=== PATIENT | female | born 1990 | race Caucasian/White ===

== ENCOUNTER 2017-09-25 11:23 | Emergency (ER) | payer OTHER, BC ==
[2017-09-25] MEDS ORDERED: Ketorolac 30 MG/ML SDV IVPUSH ONE (11:36)
[2017-09-25] MEDS ORDERED: Sodium Chloride 0.9% 1,000 ML IV ONE (11:36)
[2017-09-25] MEDS ORDERED: Ondansetron 4 MG/2 ML SDV IVPUSH ONE (11:36)
--- NOTE | 2017-09-25 11:38 | EDM.PDOC ---
ED HPI GENERAL MEDICAL PROBLEM - General Chief Complaint: Abdominal Pain Stated Complaint: ABD PAIN Time Seen by Provider: 09/25/17 11:24 Source of Information: Reports: Patient History Limitations: Reports: No Limitations - History of Present Illness INITIAL COMMENTS - FREE TEXT/NARRATIVE: HISTORY AND PHYSICAL: History of present illness: Patient is a 27-year-old female who presents to the emergency room today with complaints of right lower quadrant pain that radiates to the mid pelvis. She states that the pain was worse on Friday and since that time has been intermittent. She denies any fever, chills, chest pain, shortness of breath or cough. Some mild nausea without vomiting. No change in bowel pattern. Denies any dysuria. Last menstrual period was September 02, 2017. Denies any vaginal bleeding or discharge. Review of systems: As per history of present illness and below otherwise all systems reviewed and negative. Past medical history: As per history of present illness and as reviewed below otherwise noncontributory. Surgical history: As per history of present illness and as reviewed below otherwise noncontributory. Social history: No reported history of drug or alcohol abuse. Family history: As per history of present illness and as reviewed below otherwise noncontributory. Physical exam: General: Well-developed and well-nourished 27-year-old female. Alert and oriented. Nontoxic appearing and in no acute distress. HEENT: Atraumatic, normocephalic, pupils equal and reactive bilaterally, negative for conjunctival pallor or scleral icterus, mucous membranes moist, throat clear, neck supple, nontender, trachea midline. No drooling or trismus noted. No meningeal signs Lungs: Clear to auscultation, breath sounds equal bilaterally, chest nontender. Heart: S1S2, regular rate and rhythm without overt murmur Abdomen: Soft, nondistended, nontender. Negative for masses or hepatosplenomegaly. Negative for costovertebral tenderness. Pelvis: Stable nontender. Genitourinary: Deferred. Rectal: Deferred. Skin: Intact, warm, dry. No lesions or rashes noted. Extremities: Atraumatic, negative for cords or calf pain. Neurovascular unremarkable. Neuro: Awake, alert, oriented. Cranial nerves II through XII unremarkable. Cerebellum unremarkable. Motor and sensory unremarkable throughout. Exam nonfocal. Notes: CBC, CMP, UA are unremarkable. Negative . CT of the abdomen/pelvis results are pending. CT of the abdomen shows a 2.5 cm right ovarian cyst. Although they are unable able to identify the appendix definitively she is not having any right lower quadrant tenderness or rebound tenderness with palpation. I did discuss these results with her. We'll prescribe Cataflam 50 mg 3 times a day and close follow- up with her DREDGE LEVER OPERATOR/primary care provider. If her abdominal pain should return or worsen she needs to return to the emergency room. She voices understanding and is agreeable to plan of care. She denies any further questions at this time. Diagnostics: CBC, CMP, UA, urine , CT abdomen and pelvis Therapeutics: IV fluid, Zofran, Toradol Impression: Abdominal pain Ovarian cyst, right Plan: 1. Please take the Cataflam as directed. Please take with food. May use Tylenol for breakthrough pain. 2. Follow-up with your primary caregiver/DREDGE LEVER OPERATOR in the next 1-2 days. Return to the ED as needed and as discussed. Definitive disposition and diagnosis as appropriate pending reevaluation and review of above. Right Lower Abdomen Pain Score (Numeric/FACES): 1 - Related Data Allergies Allergy/AdvReac Type Severity Reaction Status Date / Time Penicillins Allergy Cannot Verified 09/25/17 11:39 Remember Home Meds: Home Meds Iron 18 mg PO DAILY 06/04/16 [History] Past Medical History - Past Health History Medical/Surgical History: Denies Medical/Surgical History Hematologic History: Reports: Anemia - Infectious Disease History Infectious Disease History: Reports: Chicken Pox Social & Family History - Family History Family Medical History: Noncontributory - Caffeine Use Caffeine Use: Reports: None ED ROS GENERAL - Review of Systems Review Of Systems: ROS reveals no pertinent complaints other than HPI. ED EXAM, GI/ABD - Physical Exam Exam: See Below (See dictation) Course - Vital Signs Last Recorded V/S: Last Vital Signs Temp 98.7 F 09/25/17 14:15 Pulse 83 09/25/17 14:15 Resp 14 09/25/17 14:15 BP 99/59 L 09/25/17 14:15 Pulse Ox 98 09/25/17 14:15 - Orders/Labs/Meds Orders: Active Orders 24 hr Category Date Time Status HCG QUALITATIVE,URINE [URCHEM] Stat Lab 09/25/17 11:55 Ordered UA W/MICROSCOPIC [URIN] Stat Lab 09/25/17 11:55 Ordered Labs: Laboratory Tests 09/25/17 09/25/17 09/25/17 Range/Units 11:55 11:55 11:58 WBC 6.88 (4.0-11.0) K/uL RBC 4.71 (4.30-5.90) M/uL Hgb 14.2 (12.0-16.0) g/dL Hct 41.8 (36.0-46.0) % MCV 88.7 (80.0-98.0) fL MCH 30.1 (27.0-32.0) pg MCHC 34.0 (31.0-37.0) g/dL RDW Std Deviation 37.6 (28.0-62.0) fl RDW Coeff of Lizett 12 (11.0-15.0) % Plt Count 196 (150-400) K/uL MPV 8.60 (7.40-12.00) fL Neut % (Auto) 70.9 (48.0-80.0) % Lymph % (Auto) 15.7 L (16.0-40.0) % [place] % (Auto) 12.9 (0.0-15.0) % Eos % (Auto) 0.4 (0.0-7.0) % Baso % (Auto) 0.1 (0.0-1.5) % Neut # (Auto) 4.9 (1.4-5.7) K/uL Lymph # (Auto) 1.1 (0.6-2.4) K/uL [place] # (Auto) 0.9 H (0.0-0.8) K/uL Eos # (Auto) 0.0 (0.0-0.7) K/uL Baso # (Auto) 0.0 (0.0-0.1) K/uL Nucleated RBC % 0.0 /100WBC Nucleated RBCs # 0 K/uL Sodium (136-145) mmol/L Potassium (3.5-5.1) mmol/L Chloride (98-107) mmol/L Carbon Dioxide (21.0-32.0) mmol/L BUN (7.0-18.0) mg/dL Creatinine (0.6-1.0) mg/dL Est Cr Clr Drug Dosing mL/min Estimated GFR (MDRD) ml/min Glucose (74-106) mg/dL Calcium (8.5-10.1) mg/dL Total Bilirubin (0.2-1.0) mg/dL AST (15-37) IU/L ALT (14-63) IU/L Alkaline Phosphatase (46-116) U/L Total Protein (6.4-8.2) g/dL Albumin (3.4-5.0) g/dL Globulin (2.0-3.5) g/dL Albumin/Globulin Ratio (1.3-2.8) Urine Color YELLOW Urine Appearance CLEAR Urine pH 5.5 (5.0-8.0) Ur Specific [place] 1.010 (1.001-1.035) Urine Protein NEGATIVE (NEGATIVE) mg/dL Urine Glucose (UA) NEGATIVE (NEGATIVE) mg/dL Urine Ketones NEGATIVE (NEGATIVE) mg/dL Urine Occult Blood TRACE-INTACT (NEGATIVE) Urine Nitrite NEGATIVE (NEGATIVE) Urine Bilirubin NEGATIVE (NEGATIVE) Urine Urobilinogen 0.2 (<2.0) EU/dL Ur Leukocyte Esterase NEGATIVE (NEGATIVE) Urine RBC 0-1 (0-2/HPF) Urine WBC 0-1 (0-5/HPF) Ur Epithelial Cells OCCASIONAL (NONE-FEW) Urine Bacteria RARE (NEGATIVE) Urine Mucus LIGHT (NONE-MOD) Urine HCG, Qual NEGATIVE (NEGATIVE) 09/25/17 Range/Units 11:58 WBC (4.0-11.0) K/uL RBC (4.30-5.90) M/uL Hgb (12.0-16.0) g/dL Hct (36.0-46.0) % MCV (80.0-98.0) fL MCH (27.0-32.0) pg MCHC (31.0-37.0) g/dL RDW Std Deviation (28.0-62.0) fl RDW Coeff of Lizett (11.0-15.0) % Plt Count (150-400) K/uL MPV (7.40-12.00) fL Neut % (Auto) (48.0-80.0) % Lymph % (Auto) (16.0-40.0) % [place] % (Auto) (0.0-15.0) % Eos % (Auto) (0.0-7.0) % Baso % (Auto) (0.0-1.5) % Neut # (Auto) (1.4-5.7) K/uL Lymph # (Auto) (0.6-2.4) K/uL [place] # (Auto) (0.0-0.8) K/uL Eos # (Auto) (0.0-0.7) K/uL Baso # (Auto) (0.0-0.1) K/uL Nucleated RBC % /100WBC Nucleated RBCs # K/uL Sodium 135 L (136-145) mmol/L Potassium 3.7 (3.5-5.1) mmol/L Chloride 104 (98-107) mmol/L Carbon Dioxide 26.6 (21.0-32.0) mmol/L BUN 9 (7.0-18.0) mg/dL Creatinine 0.6 (0.6-1.0) mg/dL Est Cr Clr Drug Dosing 138.93 mL/min Estimated GFR (MDRD) > 60.0 ml/min Glucose 98 (74-106) mg/dL Calcium 8.7 (8.5-10.1) mg/dL Total Bilirubin 0.4 (0.2-1.0) mg/dL AST 21 (15-37) IU/L ALT 24 (14-63) IU/L Alkaline Phosphatase 76 (46-116) U/L Total Protein 7.5 (6.4-8.2) g/dL Albumin 4.0 (3.4-5.0) g/dL Globulin 3.5 (2.0-3.5) g/dL Albumin/Globulin Ratio 1.1 L (1.3-2.8) Urine Color Urine Appearance Urine pH (5.0-8.0) Ur Specific [place] (1.001-1.035) Urine Protein (NEGATIVE) mg/dL Urine Glucose (UA) (NEGATIVE) mg/dL Urine Ketones (NEGATIVE) mg/dL Urine Occult Blood (NEGATIVE) Urine Nitrite (NEGATIVE) Urine Bilirubin (NEGATIVE) Urine Urobilinogen (<2.0) EU/dL Ur Leukocyte Esterase (NEGATIVE) Urine RBC (0-2/HPF) Urine WBC (0-5/HPF) Ur Epithelial Cells (NONE-FEW) Urine Bacteria (NEGATIVE) Urine Mucus (NONE-MOD) Urine HCG, Qual (NEGATIVE) Meds: Medications Discontinued Medications Generic Name Dose Route Start Last Admin Trade Name Ermias PRN Reason Stop Dose Admin Sodium Chloride 1,000 mls @ 999 mls/hr 09/25/17 11:36 09/25/17 11:59 Normal Saline IV 09/25/17 12:36 999 mls/hr STAT ONE Administration Iopamidol 77 ml 09/25/17 13:40 09/25/17 13:41 Isovue Multipack-370 (76%) IVPUSH 09/25/17 13:41 77 ml ONETIME STA Administration Ketorolac Tromethamine 30 mg 09/25/17 11:36 09/25/17 12:02 Toradol IVPUSH 09/25/17 11:37 30 mg ONETIME ONE Administration Ondansetron HCl 4 mg 09/25/17 11:36 09/25/17 11:59 Zofran IVPUSH 09/25/17 11:37 4 mg ONETIME ONE Administration Departure - Departure Time of Disposition: 14:20 Disposition: Home, Self-Care 01 Clinical Impression: Ovarian cyst Qualifiers: Laterality: right Qualified Code(s): N83.201 - Unspecified ovarian cyst, right side Abdominal pain Qualifiers: Abdominal location: right lower quadrant Qualified Code(s): R10.31 - Right lower quadrant pain - Discharge Information Instructions: Ovarian Cyst, [id number] Referrals: PCP,None [Primary Care Provider] - Forms: ED Department Discharge Additional Instructions: The following information is given to patients seen in the emergency department who are being discharged to home. This information is to outline your options for follow-up care. We provide all patients seen in our emergency department with a follow-up referral. The need for follow-up, as well as the timing and circumstances, are variable depending upon the specifics of your emergency department visit. If you don't have a primary care physician on staff, we will provide you with a referral. We always advise you to contact your personal physician following an emergency department visit to inform them of the circumstance of the visit and for follow-up with them and/or the need for any referrals to a consulting specialist. The emergency department will also refer you to a specialist when appropriate. This referral assures that you have the opportunity for follow-up care with a specialist. All of these measure are taken in an effort to provide you with optimal care, which includes your follow-up. Under all circumstances we always encourage you to contact your private physician who remains a resource for coordinating your care. When calling for follow-up care, please make the office aware that this follow-up is from your recent emergency room visit. If for any reason you are refused follow-up, please contact the [facility] Emergency Department at and asked to speak to the emergency department charge nurse. [facility] [address] [place] [id number] 1. Please take the Cataflam as directed. Please take with food. May use Tylenol for breakthrough pain. 2. Follow-up with your primary caregiver/DREDGE LEVER OPERATOR in the next 1-2 days. Return to the ED as needed and as discussed. - My Orders Last 24 Hours: My Active Orders 09/25/17 11:55 HCG QUALITATIVE,URINE [URCHEM] Stat UA W/MICROSCOPIC [URIN] Stat - Assessment/Plan Last 24 Hours: My Active Orders 09/25/17 11:55 HCG QUALITATIVE,URINE [URCHEM] Stat UA W/MICROSCOPIC [URIN] Stat
[2017-09-25 12:50] LABS: CHLORIDE,CL 104 mmol/L (98-107); SODIUM,NA 135 mmol/L (136-145)
[2017-09-25] MEDS ORDERED: Iopamidol 755 MG/ML 500 ML Multipack Bottle IVPUSH STA (13:40)
--- NOTE | 2017-09-25 14:04 | CT ---
CT of the abdomen and pelvis with contrast. HISTORY: Pain TECHNIQUE: Axial CT images were obtained of the abdomen and pelvis following administration of 77 mL of Isovue-370 in the right antecubital fossa without complication. Coronal and sagittal reconstructio ns obtained. FINDINGS: The lung bases are clear, no pleural effusion. Mild focal fatty infiltration near the falciform ligament otherwise the liver is unremarkable. Spleen , adrenal glands, and pancreas appear normal. The gallbladder is normal. There is no bulky retroperit morel lymphadenopathy or abdominal ascites. The kidneys enhance and function symmetrically without evidence of obstructive uropathy. Tiny cyst wi thin the lower pole of the right kidney is noted. The large and small bowel are normal in caliber without evidence of obstruction. No focal pericolonic inflammation or stranding. The appendix is definitively identified. There is a 2.5 cm right ovarian cyst. Small amount of free pelvic fluid, likely physiologic. Uterus is otherwise grossly unremarkable . No suspicious osseous abnormalities identified. IMPRESSION: 1. There is a 2.5 cm right ovarian cyst, possibly involuting. 2. The appendix is not definitively identified. 3. Small amount of free pelvic fluid, likely physiologic.
[2017-09-25 14:40] VITALS: BP 97/56
== END 2017-09-25 14:33 | disposition home or self-care (01) ==
LOC: MW.ED 11:23
DX: N83.201 Unspecified ovarian cyst, right side (principal); Z88.0 Allergy status to penicillin
CPT/HCPCS: 74177; 80053; 81001; 81025; 85025; 96361; 96374; 96375; 99284; J1885; J2405; J7040; Q9967

== ENCOUNTER 2018-02-13 15:54 | Emergency (ER) | payer OTHER, BC ==
--- NOTE | 2018-02-13 16:27 | EDM.PDOC ---
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 Mohan here with right lower pelvic pain. She states she was given methotrexate 2 days ago for ectopic . She reports in the last hour she's developed significant pain that she describes as sharp and cramping and rates an 8/10. She states she is nauseous but denies any vaginal bleeding or discharge, dysuria, fevers, chills, vomiting, diarrhea. Review of systems: As per history of present illness and below otherwise all systems reviewed and negative. Past medical history: As per history of present illness and as reviewed below otherwise noncontributory. Surgical history: As per history of present illness and as reviewed below otherwise noncontributory. Social history: No reported history of drug or alcohol abuse. Family history: As per history of present illness and as reviewed below otherwise noncontributory. Physical exam: General: Patient sitting comfortably in no acute distress and nontoxic appearing HEENT: Atraumatic, normocephalic, pupils reactive, negative for conjunctival pallor or scleral icterus, mucous membranes moist, throat clear, neck supple, nontender, trachea midline. No meningeal signs. Lungs: Clear to auscultation, breath sounds equal bilaterally, chest nontender. Heart: S1S2, regular, negative for clicks, rubs, or overt murmur. Abdomen: Soft, nondistended, nontender. Negative for masses or hepatosplenomegaly. Negative for costovertebral tenderness. Pelvis: Stable nontender. Genitourinary: Deferred. Rectal: Deferred. Extremities: Atraumatic, negative for cords or calf pain. Neurovascular unremarkable. Neuro: Awake, alert, oriented. Cranial nerves II through XII unremarkable. Cerebellum unremarkable. Motor and sensory unremarkable throughout. Exam nonfocal. Notes: 1629 - Discussed with Dr. Devi at [facility], she recommends US and hcg quant. If US shows no blood and quant is not higher than patient's last quant (410), she may be discharged with follow up instructions. 1810 - Discussed results with Dr. Tong, small amount of free fluid in pelvis. Dr. Devi discussed admitting to observe vs returning home and follow up if worsening symptoms. Patient has chosen to be discharged home and follow up instructions were given. Diagnostics: CBC, serum quant, pelvic US Therapeutics: 30mg Toradol IM Prescriptions: None Impression: Pelvic pain Plan: 1. Motrin or tylenol as needed 2. Follow up with Material Requirements Planning Manager 3. Return to ED as needed as discussed Definitive disposition and diagnosis as appropriate pending reevaluation and review of above. Right Lower Pelvic Pain Score (Numeric/FACES): 8 - Related Data Allergies Allergy/AdvReac Type Severity Reaction Status Date / Time Penicillins Allergy Cannot Verified 02/13/18 16:20 Remember Home Meds: Home Meds Iron 18 mg PO DAILY 06/04/16 [History] Ascorbic Acid [Vitamin C] 1 tab PO DAILY 02/13/18 [History] Past Medical History - Past Health History Medical/Surgical History: Denies Medical/Surgical History HEENT History: Reports: Impaired Vision Hematologic History: Reports: Anemia - Infectious Disease History Infectious Disease History: Reports: Chicken Pox Social & Family History - Family History Family Medical History: Noncontributory - Tobacco Use Smoking Status *Q: Never Smoker Second Hand Smoke Exposure: No - Caffeine Use Caffeine Use: Reports: None - Recreational Drug Use Recreational Drug Use: No ED ROS GENERAL - Review of Systems Review Of Systems: ROS reveals no pertinent complaints other than HPI. ED EXAM - Physical Exam Exam: See Below (see dictation) Course - Vital Signs Last Recorded V/S: Last Vital Signs Temp 37.3 C 02/13/18 16:17 Pulse 84 02/13/18 16:17 Resp 16 02/13/18 16:17 BP 119/76 02/13/18 16:17 Pulse Ox 100 02/13/18 16:17 - Orders/Labs/Meds Orders: Active Orders 24 hr Category Date Time Status OB Transvaginal [US] Stat Exams 02/13/18 16:29 Taken Labs: Laboratory Tests 02/13/18 02/13/18 Range/Units 17:33 17:33 WBC 8.09 (4.0-11.0) K/uL RBC 4.33 (4.30-5.90) M/uL Hgb 12.9 (12.0-16.0) g/dL Hct 37.6 (36.0-46.0) % MCV 86.8 (80.0-98.0) fL MCH 29.8 (27.0-32.0) pg MCHC 34.3 (31.0-37.0) g/dL RDW Std Deviation 36.5 (28.0-62.0) fl RDW Coeff of Lizett 12 (11.0-15.0) % Plt Count 240 (150-400) K/uL MPV 8.40 (7.40-12.00) fL Neut % (Auto) 81.2 H (48.0-80.0) % Lymph % (Auto) 12.7 L (16.0-40.0) % [place] % (Auto) 5.9 (0.0-15.0) % Eos % (Auto) 0.1 (0.0-7.0) % Baso % (Auto) 0.1 (0.0-1.5) % Neut # (Auto) 6.6 H (1.4-5.7) K/uL Lymph # (Auto) 1.0 (0.6-2.4) K/uL [place] # (Auto) 0.5 (0.0-0.8) K/uL Eos # (Auto) 0.0 (0.0-0.7) K/uL Baso # (Auto) 0.0 (0.0-0.1) K/uL Nucleated RBC % 0.0 /100WBC Nucleated RBCs # 0 K/uL HCG, Quant 352.0 mIU/mL Meds: Medications Discontinued Medications Generic Name Dose Route Start Last Admin Trade Name Freq PRN Reason Stop Dose Admin Ketorolac Tromethamine 30 mg 02/13/18 16:30 02/13/18 17:32 Toradol IM 02/13/18 16:31 30 mg ONETIME ONE Administration Departure - Departure Time of Disposition: 18:20 Disposition: Home, Self-Care 01 Condition: Good Clinical Impression: Pelvic pain, Ectopic - Discharge Information Referrals: PCP,None [Primary Care Provider] - Forms: ED Department Discharge Additional Instructions: The following information is given to patients seen in the emergency department who are being discharged to home. This information is to outline your options for follow-up care. We provide all patients seen in our emergency department with a follow-up referral. The need for follow-up, as well as the timing and circumstances, are variable depending upon the specifics of your emergency department visit. If you don't have a primary care physician on staff, we will provide you with a referral. We always advise you to contact your personal physician following an emergency department visit to inform them of the circumstance of the visit and for follow-up with them and/or the need for any referrals to a consulting specialist. The emergency department will also refer you to a specialist when appropriate. This referral assures that you have the opportunity for follow-up care with a specialist. All of these measure are taken in an effort to provide you with optimal care, which includes your follow-up. Under all circumstances we always encourage you to contact your private physician who remains a resource for coordinating your care. When calling for follow-up care, please make the office aware that this follow-up is from your recent emergency room visit. If for any reason you are refused follow-up, please contact the [facility] Emergency Department at and asked to speak to the emergency department charge nurse. [facility] [address] [place] [id number] 1. Motrin or tylenol as needed 2. Follow up with Material Requirements Planning Manager 3. Return to ED as needed as discussed - My Orders Last 24 Hours: My Active Orders 02/13/18 16:29 OB Transvaginal [US] Stat - Assessment/Plan Last 24 Hours: My Active Orders 02/13/18 16:29 OB Transvaginal [US] Stat
[2018-02-13] MEDS ORDERED: Ketorolac 30 MG/ML SDV IM ONE (16:30)
[2018-02-13 18:48] VITALS: BP 116/65
--- NOTE | 2018-02-16 09:57 | US ---
EXAM DATE: 02/13/18 PATIENT'S AGE: 27 Patient: CRYSTAL OROPEZA Facility: [place], [place] Site . Site : 1990 Study: US OB Pelvis [id number] 5:37:31 PM Ordering Physician: Doctor Kaur Final Report: INDICATION: Right-sided pelvic pain x2 hours. Patient had methotrexate shot 2 days ago for diagnostic topic . TECHNIQUE: Ultrasound OB pelvis transvaginal. Real-time wright-scale imaging of the pelvis was performed. COMPARISON: None FINDINGS: Unremarkable uterus and endometrium. No sign of intrauterine . Complex lesion with peripheral vascular blood flow in the right ovary measures approximately 2 cm. No other suspicious ovarian or adnexal mass. Small amount of complex free fluid is present. IMPRESSION: Complex cystic lesion in or adjacent to the right ovary measuring up to 2 cm is consistent with an ectopic . No fetus visualized and no sign of 5 0 . There is a small amount of complex free fluid in the pelvis. Remainder of the exam is unremarkable. Dictated by Pancho Bey MD @ Feb 13 2018 5:52PM (Electronic Signature) Report Signed by Proxy. [facility]
== END 2018-02-13 18:46 | disposition home or self-care (01) ==
LOC: MW.ED 15:54
DX: O00.90 Unspecified ectopic pregnancy without intrauterine pregnancy (principal); Z79.899 Other long term (current) drug therapy; Z88.0 Allergy status to penicillin
CPT/HCPCS: 36415; 76817; 84702; 85025; 96372; 99284; J1885

== ENCOUNTER 2020-08-23 10:50 | Emergency (ER) | payer OTHER ==
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
[2020-08-23] MEDS ORDERED: Ibuprofen 800 MG Tab PO ONE (12:15)
--- NOTE | 2020-08-23 12:40 | CR ---
INDICATION: Pain, shortness of breath TECHNIQUE: Chest 2 views. COMPARISON: None FINDINGS: Cardiovascular and mediastinum: Heart size and vasculature are normal in caliber and appearance. Mediastinum is within normal limits. Lungs and pleural spaces: Lungs are clear. No sign of infiltrate or mass. No sign of pleural effusion. No pneumothorax. Bones and soft tissues: No significant findings. IMPRESSION: No sign of acute disease. Dictated by Maura Silva MD @ Aug 23 2020 12:39PM Signed by Dr. Maura Silva @ Aug 23 2020 12:39PM
[2020-08-23 12:57] VITALS: BP 100/63; PULSE 94
== END 2020-08-23 12:57 | disposition home or self-care (01) ==
LOC: MW.ED 10:50
DX: R07.9 Chest pain, unspecified (principal); Z88.0 Allergy status to penicillin
CPT/HCPCS: 71046; 81025; 99284; A9270; 99283

== ENCOUNTER 2021-07-30 19:14 | Inpatient (IN) | payer OTHER ==
[2021-07-30] MEDS ORDERED: Lidocaine 1% 50 ML MDV INJECT PRN (20:09)
[2021-07-30] MEDS ORDERED: Carboprost Tromethamine 250 MCG/1 ML Amp IM PRN (20:09)
[2021-07-30] MEDS ORDERED: Ondansetron 4 MG/2 ML SDV IVPUSH PRN (20:09)
[2021-07-30] MEDS ORDERED: Methylergonovine 0.2 MG/1 ML Amp IM PRN (20:09)
[2021-07-30] MEDS ORDERED: Misoprostol 25 MCG (1/4 of 100 MCG) Tab VAG PRN (20:09)
[2021-07-30] MEDS ORDERED: Water For Irrigation,Sterile 1,000 ML Container IRR PRN (20:09)
[2021-07-30] MEDS ORDERED: Terbutaline 1 MG/ML SDV SUBCUT PRN (20:09)
[2021-07-30] MEDS ORDERED: Sodium Chloride 0.9% 20 ML SDV IV PRN (20:09)
[2021-07-30] MEDS ORDERED: Tranexamic Acid 1,000 MG in Sodium Chloride 0.9% 100 ML IV PRN (20:09)
[2021-07-30] MEDS ORDERED: Misoprostol 200 MCG Tab PO PRN (20:09)
[2021-07-30] MEDS ORDERED: Sodium Chloride 0.9% 10 ML Syringe FLUSH PRN (20:09)
[2021-07-30] MEDS ORDERED: Butorphanol 1 MG/ML SDV IVPUSH PRN (20:09)
[2021-07-30] MEDS ORDERED: Sodium Chloride 0.9% 2.5 ML Syringe FLUSH PRN (20:09)
[2021-07-30] MEDS ORDERED: Nalbuphine 20 MG/1 ML Amp IVPUSH PRN (20:13)
[2021-07-30] MEDS ORDERED: Oxytocin/0.9 % Sodium Chloride 30 UNIT/500 ML BAG IV SCH ×2 (20:15)
[2021-07-30] MEDS ORDERED: Misoprostol 25 MCG (1/4 of 100 MCG) Tab ONE (20:16)
[2021-07-30] MEDS: Misoprostol 25 MCG (1/4 of 100 MCG) Tab VAG PRN (20:41)
[2021-07-30] MEDS: Lactated Ringers 1,000 ML IV SCH (20:41)
[2021-07-31] MEDS: Misoprostol 25 MCG (1/4 of 100 MCG) Tab VAG PRN ×2 (01:22→06:42)
[2021-07-31] MEDS: Lactated Ringers 1,000 ML IV SCH ×4 (13:10→19:43)
[2021-07-31] MEDS ORDERED: Ropivacaine 100 ML ONE ×2 (13:34→15:29)
[2021-07-31] MEDS ORDERED: fentaNYL 100 MCG/2 ML SDV ONE ×3 (13:34→15:29)
[2021-07-31] MEDS ORDERED: ePHEDrine 50 MG/ML SDV IVPUSH PRN (14:01)
[2021-07-31] MEDS ORDERED: Bupivacaine 0.5% 10 ML SDV ONE (15:06)
[2021-08-01] MEDS ORDERED: Bisacodyl 10 MG Supp RECTAL PRN (01:03)
[2021-08-01] MEDS ORDERED: oxyCODONE 5 MG Tab PO PRN (01:03)
[2021-08-01] MEDS ORDERED: Benzocaine/Menthol 20%-0.5% Spray 78 GM Cannister TOP PRN (01:03)
[2021-08-01] MEDS ORDERED: Lanolin 100% Cream 7 GM Tube TOP PRN (01:03)
[2021-08-01] MEDS: Lactated Ringers 1,000 ML IV SCH (01:04)
[2021-08-01] MEDS: Ibuprofen 800 MG Tab PO PRN ×3 (02:01→19:41)
[2021-08-01] MEDS: Witch Hazel Medicated Pads 40/Jar TOP PRN (02:03)
[2021-08-01] MEDS: Docusate Sodium 100 MG Cap PO PRN ×2 (07:25→19:41)
[2021-08-01] MEDS: Acetaminophen 500 MG Tab PO PRN (07:25)
[2021-08-02] MEDS: Docusate Sodium 100 MG Cap PO PRN ×2 (07:28→19:47)
[2021-08-02] MEDS: Ibuprofen 800 MG Tab PO PRN ×2 (07:28→19:46)
[2021-08-02] MEDS ORDERED: Iron Sucrose Complex 500 MG in Sodium Chloride 0.9% 250 ML IV ONE (08:15)
[2021-08-02] MEDS ORDERED: ferumoxytoL 510 MG in Sodium Chloride 0.9% 100 ML IV ONE (08:45)
[2021-08-03] MEDS: Witch Hazel Medicated Pads 40/Jar TOP PRN (00:04)
[2021-08-03 15:51] VITALS: PULSE 100
[2021-08-03] MEDS: Acetaminophen 500 MG Tab PO PRN (20:37)
[2021-08-03] MEDS: Docusate Sodium 100 MG Cap PO PRN (20:37)
[2021-08-03] MEDS: Ibuprofen 800 MG Tab PO PRN (20:38)
[2021-08-03 21:46] VITALS: BP 118/62
== END 2021-08-03 23:49 | disposition home or self-care (01) | DRG 806 ==
LOC: MW.OB 19:14 → MW.OBCHECK 19:14 → MW.OB 20:36 → OBSVTOIN 08-01 00:18 → MW.OB 08-01 07:15
PROVIDERS: ADMIT Obstetrics & Gynecology; ATTEND Obstetrics & Gynecology
PROC: 10E0XZZ Delivery of Products of Conception, External Approach (ICD-10-PCS; principal; 2021-08-01)
PROC: 0KQM0ZZ Repair Perineum Muscle, Open Approach (ICD-10-PCS; 2021-08-01)
PROC: 10907ZC Drainage of Amniotic Fluid, Therapeutic from Products of Conception, Via Natural or Artificial Opening (ICD-10-PCS; 2021-08-01)
PROC: 4A1HXCZ Monitoring of Products of Conception, Cardiac Rate, External Approach (ICD-10-PCS; 2021-08-01)
PROC: 3E0R3BZ Introduction of Anesthetic Agent into Spinal Canal, Percutaneous Approach (ICD-10-PCS; 2021-08-01)
PROC: 00HU33Z Insertion of Infusion Device into Spinal Canal, Percutaneous Approach (ICD-10-PCS; 2021-08-01)
DX: O99.02 Anemia complicating childbirth (principal); D62 Acute posthemorrhagic anemia; Z37.0 Single live birth; Z3A.39 39 weeks gestation of pregnancy; O70.1 Second degree perineal laceration during delivery; Z20.822 Contact with and (suspected) exposure to COVID-19
CPT/HCPCS: 01967; 36415; 51702; 59025; 59409; 82803; 85014; 85018; 85027; 86592; 86850; 86900; 86901; 97161-GP; A9270-GY; J2405; J2590; J2795; J3010; J3490; J7120; Q0138; U0002

== ENCOUNTER 2022-09-26 12:27 | Emergency (ER) | payer BC ==
[2022-09-26] MEDS ORDERED: Sodium Chloride 0.9% 1,000 ML IV ONE (12:35)
[2022-09-26 13:01] LABS: BASOPHILS PERCENT AUTO 0.2 % (0.0-1.5); EOSINOPHILS PERCENT AUTO 0.1 % (0.0-7.0); HEMATOCRIT 41.1 % (36.0-46.0); HEMOGLOBIN 13.8 g/dL (12.0-16.0); LYMPHOCYTES ABSOLUTE AUTO 1.9 K/uL (0.6-2.4); LYMPHOCYTES PERCENT AUTO 19.7 % (16.0-40.0); MEAN CORPUSCULAR HEMOGLOBIN 27.9 pg (27.0-32.0); MEAN CORPUSCULAR HGB CONC 33.6 g/dL (31.0-37.0); MEAN CORPUSCULAR VOLUME 83.2 fL (80.0-98.0); MONOCYTES ABSOLUTE AUTO 0.7 K/uL (0.0-0.8); MONOCYTES PERCENT AUTO 7.1 % (0.0-15.0); NEUTROPHILS ABSOLUTE AUTO 7.1 K/uL (1.4-5.7); NEUTROPHILS PERCENT AUTO 72.9 % (48.0-80.0); NRBC ABSOLUTE 0 K/uL; PLATELET COUNT,PLT 278 K/uL (150-400); RED BLOOD CELL COUNT 4.94 M/uL (4.30-5.90); WHITE BLOOD CELL COUNT,WBC 9.74 K/uL (4.0-11.0)
[2022-09-26 13:16] LABS: APPEARANCE,URINE CLEAR; BILIRUBIN,URINE NEGATIVE (NEGATIVE); COLOR,URINE YELLOW; GLUCOSE,URINE NEGATIVE (NEGATIVE); KETONES,URINE NEGATIVE (NEGATIVE); LEUKOCYTE ESTERASE,URINE NEGATIVE (NEGATIVE); NITRITE,URINE NEGATIVE (NEGATIVE); OCCULT BLOOD,URINE TRACE-INTACT (NEGATIVE); PH,URINE 7.5 (5.0-8.0); PROTEIN,URINE NEGATIVE (NEGATIVE); UROBILINOGEN,URINE 0.2 EU/dL (<2.0)
[2022-09-26 13:30] LABS: BACTERIA,URINE FEW (NEGATIVE); EPITHELIAL CELLS,URINE FEW (NONE-FEW); RBC,URINE 0-1 (0-2/HPF); WBC,URINE 0-1 (0-5/HPF)
[2022-09-26 13:33] LABS: A/G RATIO 0.8 (0.9-1.6); ALBUMIN 3.5 g/dL (3.4-5.0); BILIRUBIN TOTAL 1.4 mg/dL (0.2-1.0); CALCIUM 8.4 mg/dL (8.5-10.1); CARBON DIOXIDE,CO2 28.5 mmol/L (21.0-32.0); CREATININE 0.6 mg/dL (0.6-1.0); EST CRCL DRUG DOSING (CG) 138.3 mL/min; POTASSIUM,K 3.1 mmol/L (3.5-5.1); PROTEIN TOTAL,TP 7.7 g/dL (6.4-8.2)
[2022-09-26 14:33] LABS: INR 1.36 (0.86-1.11)
[2022-09-26 16:05] LABS: BILIRUBIN DIRECT 0.8 mg/dL (0.0-0.5)
[2022-09-26] MEDS ORDERED: Iopamidol 755 MG/ML 500 ML Multipack Bottle IVPUSH ONE (16:46)
[2022-09-26 18:30] VITALS: BP 97/58; PULSE 95
== END 2022-09-26 18:31 | disposition home or self-care (01) ==
LOC: MW.ED 12:27
DX: R74.01 Elevation of levels of liver transaminase levels (principal); R53.83 Other fatigue; Z88.0 Allergy status to penicillin
CPT/HCPCS: 36415; 74177; 76705; 80053; 80143; 81001; 82248; 82784; 83690; 84703; 85025; 85610; 86255; 86308; 86376; 96360; 99284; J7030; Q9967; 87799; 99283

== ENCOUNTER 2023-05-28 08:50 | Emergency (ER) | payer OTHER, BC ==
[2023-05-28] MEDS ORDERED: Acetaminophen 500 MG Tab PO ONE (09:03)
[2023-05-28 09:22] VITALS: PULSE 112
[2023-05-28 09:46] LABS: CORONAVIRUS COVID-19 NAA NEGATIVE (NEGATIVE); INFLUENZA A NAA POSITIVE (NEGATIVE); INFLUENZA B NAA NEGATIVE (NEGATIVE)
[2023-05-28 10:08] VITALS: BP 104/60
== END 2023-05-28 10:07 | disposition home or self-care (01) ==
LOC: MW.ED 08:50
DX: O98.512 Other viral diseases complicating pregnancy, second trimester (principal); J10.1 Influenza due to other identified influenza virus with other respiratory manifestations; Z88.0 Allergy status to penicillin; Z3A.20 20 weeks gestation of pregnancy; Z79.899 Other long term (current) drug therapy; Z20.822 Contact with and (suspected) exposure to COVID-19
CPT/HCPCS: 0240U; 99284; A9270

== ENCOUNTER 2023-10-09 00:11 | Inpatient (IN) | payer BC ==
[2023-10-09] MEDS ORDERED: Terbutaline 1 MG/ML SDV SUBCUT PRN (00:35)
[2023-10-09] MEDS ORDERED: Sodium Chloride 0.9% 2.5 ML Syringe FLUSH PRN (00:35)
[2023-10-09] MEDS ORDERED: Lidocaine 1% 50 ML MDV INJECT PRN (00:35)
[2023-10-09] MEDS ORDERED: Misoprostol 200 MCG Tab PO PRN (00:35)
[2023-10-09] MEDS ORDERED: Sodium Chloride 0.9% 20 ML SDV IV PRN (00:35)
[2023-10-09] MEDS ORDERED: Water For Irrigation,Sterile 1,000 ML Container IRR PRN (00:35)
[2023-10-09] MEDS ORDERED: Carboprost Tromethamine 250 MCG/1 mL Vial IM PRN (00:35)
[2023-10-09] MEDS ORDERED: Butorphanol 2 MG/ML SDV IVPUSH PRN (00:35)
[2023-10-09] MEDS ORDERED: Sodium Chloride 0.9% 10 ML Syringe FLUSH PRN (00:35)
[2023-10-09] MEDS ORDERED: Ondansetron 4 MG/2 ML SDV IVPUSH PRN (00:35)
[2023-10-09] MEDS: Lactated Ringers 1,000 ML IV SCH (00:55)
[2023-10-09] MEDS: Misoprostol 25 MCG (1/4 of 100 MCG) Tab VAG PRN ×2 (01:14→05:15)
[2023-10-09 01:32] LABS: HEMATOCRIT 31.2 % (37.0-47.0); HEMOGLOBIN 10.2 g/dL (12.0-16.0); MEAN CORPUSCULAR HEMOGLOBIN 25.1 pg (28.0-32.0); MEAN CORPUSCULAR HGB CONC 32.7 g/dL (32.0-36.0); MEAN CORPUSCULAR VOLUME 76.7 fL (83.0-99.0); MEAN PLATELET VOLUME 9.3 fL (9.4-12.3); PLATELET COUNT,PLT 269 K/uL (150-400); RED BLOOD CELL COUNT 4.07 M/uL (4.10-5.30); WHITE BLOOD CELL COUNT,WBC 6.95 K/uL (3.9-11.3)
[2023-10-09] MEDS ORDERED: ePHEDrine 50 MG/ML SDV IVPUSH PRN ×2 (02:48)
[2023-10-09] MEDS ORDERED: Phenylephrine HCl In 0.9% NaCl 1 MG/10 ML Syringe IVPUSH PRN (02:48)
[2023-10-09] MEDS: Ropivacaine HCl/PF 400 MG in Premix Bag 1 BAG EPIDUR SCH (10:44)
[2023-10-09] MEDS ORDERED: Bupivacaine 0.25% 10 ML SDV ONE (10:45)
[2023-10-09] MEDS ORDERED: dexmedeTOMIDine HCl 200 MCG/2 ML SDV ONE (10:45)
[2023-10-09] MEDS: Tranexamic Acid IN NACL,ISO-OS 1,000 MG in Premix Bag 1 BAG IV PRN (16:26)
[2023-10-09] MEDS: Oxytocin/0.9 % Sodium Chloride 30 UNIT/500 ML BAG IV SCH (16:35)
[2023-10-09] MEDS: Methylergonovine 0.2 MG/1 ML Amp IM PRN (16:35)
[2023-10-09] MEDS: Misoprostol 200 MCG Tab RECTAL ONE (16:43)
[2023-10-09] MEDS ORDERED: Lanolin 100% Cream 7 GM Tube TOP PRN (17:18)
[2023-10-09] MEDS ORDERED: Docusate Sodium 100 MG Cap PO PRN (17:18)
[2023-10-09] MEDS ORDERED: Acetaminophen 500 MG Tab PO PRN (17:18)
[2023-10-09] MEDS ORDERED: Measles, Mumps & Rubella Vaccine 0.5 ML SDV SUBCUT ONE (17:18)
[2023-10-09 17:35] LABS: PH,UMBILICAL ARTERIAL 7.373 (7.18-7.38); PH,UMBILICAL VENOUS 7.375 (7.25-7.45)
[2023-10-09] MEDS: Benzocaine/Menthol 20%-0.5% Spray 78 GM Cannister TOP PRN (18:53)
[2023-10-09] MEDS: Witch Hazel Medicated Pads 40/Jar TOP PRN (18:53)
[2023-10-09 20:16] LABS: HEMATOCRIT 31.6 % (37.0-47.0); HEMOGLOBIN 10.2 g/dL (12.0-16.0)
[2023-10-09] MEDS: Ibuprofen 800 MG Tab PO PRN (23:30)
[2023-10-10 15:27] LABS: HEMATOCRIT 27.5 % (37.0-47.0); HEMOGLOBIN 8.8 g/dL (12.0-16.0); MEAN CORPUSCULAR HEMOGLOBIN 24.8 pg (28.0-32.0); MEAN CORPUSCULAR VOLUME 77.5 fL (83.0-99.0); MEAN PLATELET VOLUME 9.1 fL (9.4-12.3); PLATELET COUNT,PLT 263 K/uL (150-400); RED BLOOD CELL COUNT 3.55 M/uL (4.10-5.30); WHITE BLOOD CELL COUNT,WBC 10.13 K/uL (3.9-11.3)
[2023-10-10] MEDS ORDERED: Oxytocin 10 Units/1 ML SDV ONE (21:22)
[2023-10-11 09:40] VITALS: BP 108/66; PULSE 96
== END 2023-10-11 11:58 | disposition home or self-care (01) | DRG 560 ==
LOC: MW.OBCHECK 00:11 → MW.OB 00:12 → MW.OBCHECK 00:48 → MW.OB 00:49 → UNDOADMOB 00:49 → OBSVTOIN 16:25 → MW.OB 19:00
PROVIDERS: ADMIT Obstetrics & Gynecology; ATTEND Obstetrics & Gynecology
PROC: 10E0XZZ Delivery of Products of Conception, External Approach (ICD-10-PCS; principal; 2023-10-09)
PROC: 0HQ9XZZ Repair Perineum Skin, External Approach (ICD-10-PCS; 2023-10-09)
PROC: 3E0R3BZ Introduction of Anesthetic Agent into Spinal Canal, Percutaneous Approach (ICD-10-PCS; 2023-10-09)
PROC: 00HU33Z Insertion of Infusion Device into Spinal Canal, Percutaneous Approach (ICD-10-PCS; 2023-10-09)
PROC: 3E0P7VZ Introduction of Hormone into Female Reproductive, Via Natural or Artificial Opening (ICD-10-PCS; 2023-10-09)
DX: O72.1 Other immediate postpartum hemorrhage (principal); Z37.0 Single live birth; O70.0 First degree perineal laceration during delivery; Z3A.39 39 weeks gestation of pregnancy; Z88.0 Allergy status to penicillin
CPT/HCPCS: 36415; 51702; 59025; 59409; 82803; 85014; 85018; 85027; 86592; 86850; 86900; 86901; A9270-GY; C1729; J2210; J2590; J2795; J3490; J7120